=== PATIENT | male | born 1960 | race Caucasian/White ===

== ENCOUNTER 2017-11-03 13:30 | Emergency (ER) | payer SELFPAY ==
[~2017-11-03 13:30] MED LIST: LORT5TAB PO
[2017-11-03 13:34] VITALS: BP 139/91; PULSE 84; RESP 20; TEMP 98.6; O2SAT 97
--- NOTE | 2017-11-03 13:47 | PD ---
HPI Chief Complaint: Headache Time Seen by Provider: 13:46 Travel History International Travel<30 days: No Contact w/Intl Traveler<30days: No Traveled to known affect area: No History of Present Illness HPI 57-year-old male came to the emergency room with his with history of headache that has been there for a few weeks now. Patient says headache is mostly in the frontal area. He feels pressure behind his eyes mostly the left. Patient also says that he frequently gets headaches but has not come to the emergency room. His said she made him come to the emergency room because she is getting tired of hearing him complain and she wants to make sure that there is nothing serious going on. Patient does not have primary care doctor. Vital signs are stable. No aggravating or relieving factors identified. No radiation of the pain besides the facial pain. No visual disturbances. No neck rigidity. No fever or chills. PFSH Past Medical History Narrative Medical List of his past medical, surgical, social and family history is reviewed from the nursing note. Diminished Hearing: No Past Surgical History Other Surgery: Yes (SPLEENECTOMY) Social History Alcohol Use: Yes (SOCIAL) Tobacco Use: Yes (1 PPD) Substance Use: No Allergies-Medications (Allergen,Severity, Reaction): Coded Allergies: No Known Allergies (Verified Adverse Reaction, Unknown, 11/03/17) Comments No known drug allergies. Reported Meds & Prescriptions Reported Meds & Active Scripts Active Fioricet (Yhgchivzpy-Pdqbfphhiijfr-Oqoyarvf) 50-300-40 Mg Cap 1 Cap PO Q4H PRN Narrative Medication List of his home medications reviewed from the nursing note. Review of Systems Except as stated in HPI: all other systems reviewed are Neg Neurologic: Positive: Headache Physical Exam Narrative GENERAL: Awake, alert, mild distress SKIN: Focused skin assessment warm/dry. HEAD: Atraumatic. Normocephalic. EYES: Pupils equal and round. No scleral icterus. No injection or drainage. ENT: No nasal bleeding or discharge. Mucous membranes pink and moist. NECK: Trachea midline. No JVD. Neck is supple, no signs of meningismus. CARDIOVASCULAR: Regular rate and rhythm. No murmur appreciated. RESPIRATORY: No accessory muscle use. Clear to auscultation. Breath sounds equal bilaterally. GASTROINTESTINAL: Abdomen soft, non-tender, nondistended. Hepatic and splenic margins not palpable. MUSCULOSKELETAL: No obvious deformities. No clubbing. No cyanosis. No edema. NEUROLOGICAL: Awake and alert. No obvious cranial nerve deficits. Motor grossly within normal limits. Normal speech. PSYCHIATRIC: Appropriate mood and affect; insight and judgment normal. Data Data Last Documented VS Vital Signs Date Time Temp Pulse Resp B/P (MAP) Pulse Ox O2 Delivery O2 Flow Rate FiO2 11/03/17 15:42 11/03/17 15:02 99 Room Air 11/03/17 15:02 89 18 11/03/17 13:34 98.6 Orders Orders Complete Blood Count With Diff (11/03/17 13:56) Basic Metabolic Panel (Bmp) (11/03/17 13:56) Ct Brain W/O Iv Contrast(Rout) (11/03/17 13:56) Ecg Monitoring (11/03/17 13:56) Iv Access Insert/Monitor (11/03/17 13:56) Oximetry (11/03/17 13:56) Sodium Chloride 0.9% Flush (Ns Flush) (11/03/17 14:00) Prochlorperazine Inj (Compazine Inj) (11/03/17 14:00) Sodium Chlor 0.9% 1000 Ml Inj (Ns 1000 M (11/03/17 13:56) Ed Discharge Order (11/03/17 15:28) Labs Laboratory Tests Test 11/03/17 14:30 White Blood Count 11.9 TH/MM3 Red Blood Count 5.63 MIL/MM3 Hemoglobin 16.6 GM/DL Hematocrit 49.6 % Mean Corpuscular Volume 88.1 FL Mean Corpuscular Hemoglobin 29.5 PG Mean Corpuscular Hemoglobin Concent 33.5 % Red Cell Distribution Width 13.1 % Platelet Count 408 TH/MM3 Mean Platelet Volume 7.8 FL Neutrophils (%) (Auto) 52.0 % Lymphocytes (%) (Auto) 35.4 % Monocytes (%) (Auto) 10.1 % Eosinophils (%) (Auto) 1.8 % Basophils (%) (Auto) 0.7 % Neutrophils # (Auto) 6.2 TH/MM3 Lymphocytes # (Auto) 4.2 TH/MM3 Monocytes # (Auto) 1.2 TH/MM3 Eosinophils # (Auto) 0.2 TH/MM3 Basophils # (Auto) 0.1 TH/MM3 CBC Comment DIFF FINAL Differential Comment Blood Urea Nitrogen 17 MG/DL Creatinine 0.86 MG/DL Random Glucose 108 MG/DL Calcium Level 9.1 MG/DL Sodium Level 141 MEQ/L Potassium Level 4.6 MEQ/L Chloride Level 107 MEQ/L Carbon Dioxide Level 28.8 MEQ/L Anion Gap 5 MEQ/L Estimat Glomerular Filtration Rate 92 ML/MIN MDM Medical Decision Making Medical Screen Exam Complete: Yes Emergency Medical Condition: Yes Medical Record Reviewed: Yes Differential Diagnosis Status migrainous, sinusitis, intracranial tumor Narrative Course 3:47 PM patient was given IV fluid bolus and IV Compazine. I went back and reassessed him and he said his headache was slightly better. Head CT and labs are back and within acceptable limits. I will discharge him home with prescription and have given him instructions. Patient is comfortable going home. Procedures EKG Prior to Arrival: No Diagnosis Primary Impression: Status migrainosus Referrals: [facility] Additional Instructions: Follow-up with the walk-in clinic whose name and number been provided to you. Do not look at television screen, computer or smart phone screen for another 24- 48 hours and give rest to your brain and eyes. Take the medication as per the prescription direction. Drink coffee or caffeinated beverages. Restrict drinking alcohol, wine or eating cheese or chocolate since it might worsen your headache. Med/Other Pt SpecificInfo: Prescription(s) given Scripts Pmolllvjih-Nddubgzxxvedm-Ioecstqb (Fioricet) 50-300-40 Mg Cap 1 CAP PO Q4H Y for HEADACHE, #15 CAP 0 Refills Prov: Clay Santiago MD 11/03/17 Disposition: 01 DISCHARGE HOME Condition: Stable Clay Santiago MD Nov 03, 2017 13:47
[2017-11-03] MEDS ORDERED: SODIUM CHLOR 0.9% 1000 ML INJ 1,000 ML IV ONE (13:56)
[2017-11-03] MEDS ORDERED: SODIUM CHLORIDE 0.9% FLUSH 10 ML FLUSH IVF PRN (14:00)
[2017-11-03] MEDS ORDERED: PROCHLORPERAZINE INJ 10 MG/2 ML VIAL IVP ONE (14:00)
[2017-11-03 14:56] LABS: AUTOMATED NEUTROPHIL # 6.2 TH/MM3 (1.8-7.7); BASOPHIL # 0.1 TH/MM3 (0-0.2); BASOPHIL % 0.7 % (0.0-2.0); EOSINOPHIL # 0.2 TH/MM3 (0-0.4); EOSINOPHIL % 1.8 % (0.0-4.0); HEMATOCRIT 49.6 % (39.0-51.0); HEMOGLOBIN 16.6 GM/DL (13.0-17.0); LYMPH % 35.4 % (9.0-44.0); LYMPHOCYTE # 4.2 TH/MM3 (1.0-4.8); MEAN CELL VOLUME 88.1 FL (80.0-100.0); MEAN CORPUSCULAR HEMOGLOBIN 29.5 PG (27.0-34.0); MEAN CORPUSCULAR HGB CONC 33.5 % (32.0-36.0); MEAN PLATELET VOLUME 7.8 FL (7.0-11.0); MONO % 10.1 % (0.0-8.0); MONOCYTE # 1.2 TH/MM3 (0-0.9); PLATELET COUNT 408 TH/MM3 (150-450); RED BLOOD COUNT 5.63 MIL/MM3 (4.50-5.90); RED CELL DISTRIBUTION WIDTH 13.1 % (11.6-17.2); WHITE BLOOD COUNT 11.9 TH/MM3 (4.0-11.0)
[2017-11-03 14:59] LABS: CALCIUM 9.1 MG/DL (8.5-10.1)
[2017-11-03 15:00] LABS: BICARBONATE 28.8 MEQ/L (21.0-32.0)
[2017-11-03 15:02] VITALS: BP 118/81; PULSE 89; RESP 18; O2SAT 99
[2017-11-03 15:03] LABS: CREATININE 0.86 MG/DL (0.60-1.30)
--- NOTE | 2017-11-03 15:11 | RADRPT ---
EXAM DATE/TIME: 11/03/2017 14:42 [facility] COMPARISON: No previous studies available for comparison. INDICATIONS : Cephalgia. RADIATION DOSE: 58.56 CTDIvol (mGy) MEDICAL HISTORY : None SURGICAL HISTORY : Splenectomy. ENCOUNTER: Initial ACUITY: 2 weeks PAIN SCALE: 7/10 LOCATION: cranial TECHNIQUE: Multiple contiguous axial images were obtained of the head. Using automated exposure control and adj ustment of the mA and/or kV according to patient size, radiation dose was kept as low as reasonably a chievable to obtain optimal diagnostic quality images. DICOM format image data is available electro nically for review and comparison. FINDINGS: CEREBRUM: The ventricles are normal. No evidence of midline shift, mass lesion, hemorrhage or acute infarction . No extra-axial fluid collections are seen. POSTERIOR FOSSA: The cerebellum and brainstem are intact. The 4th ventricle is midline. The cerebellopontine angle i s unremarkable. EXTRACRANIAL: Visualized sinuses are clear. SKULL: The calvaria is intact. No evidence of skull fracture. CONCLUSION: No acute intracranial abnormality is identified. Daryl Falcon MD on November 03, 2017 at 15:06 Board Certified Radiologist. This report was verified electronically.
[2017-11-03] MEDS ORDERED: BUTA1CAP PO (15:31)
== END 2017-11-03 15:44 | disposition home or self-care (01) ==
LOC: PHED 13:30
DX: G43.901 Migraine, unspecified, not intractable, with status migrainosus (principal); F17.200 Nicotine dependence, unspecified, uncomplicated
CPT/HCPCS: 70450; 80048; 85025; 96374; 99284; J0780; J7030